=== PATIENT | female | born 1970 ===

== ENCOUNTER 2023-04-10 05:13 | Day surgery (SDC) | payer BC ==
[2023-04-09 11:44] VITALS: BMI 25.9
[2023-04-10 13:30] VITALS: TEMP 97.8
[2023-04-10 14:13] VITALS: BP 150/77; PULSE 60; RESP 11
== END 2023-04-10 14:30 | disposition home or self-care (01) ==
LOC: JASU-ENDO 05:13
PROVIDERS: ATTEND Internal Medicine Gastroenterology
PROC: 0DB68ZX Excision of Stomach, Via Natural or Artificial Opening Endoscopic, Diagnostic (ICD-10-PCS; 2023-04-10)
PROC: 0DB78ZX Excision of Stomach, Pylorus, Via Natural or Artificial Opening Endoscopic, Diagnostic (ICD-10-PCS; 2023-04-10)
PROC: 0DBL8ZX Excision of Transverse Colon, Via Natural or Artificial Opening Endoscopic, Diagnostic (ICD-10-PCS; principal; 2023-04-10 10:30)
DX: Z12.11 Encounter for screening for malignant neoplasm of colon (principal); D12.3 Benign neoplasm of transverse colon; K29.50 Unspecified chronic gastritis without bleeding; K44.9 Diaphragmatic hernia without obstruction or gangrene; Z87.19 Personal history of other diseases of the digestive system
CPT/HCPCS: 36415; 84702; 88305-TC; 88342-TC